=== PATIENT | female | born 1985 | race Caucasian/White ===

== ENCOUNTER → 2022-03-30 | Outpatient (CLI) | payer BC ==
[2022-03-30 10:28] LABS: HCT 39.1 % (34.0-46.0); HGB 13.4 gm/dL (11.4-16.0); MCH 33.1 pg (25.0-35.0); MCHC 34.3 g/dL (31.0-37.0); MCV 96.6 fL (80.0-100.0); Platelet Count 258 k/uL (150-450); RBC 4.05 m/uL (3.80-5.40); RDW 12.1 % (11.5-15.5)
[2022-03-30 10:39] LABS: African American GFR (CKD) >90 (>60 ml/min/1.73 sqM); Glucose 92 mg/dL (74-99); Non-African American GFR(CKD) >90 (>60 ml/min/1.73 sqM)
[2022-03-30 23:05] LABS: Hepatitis B Surface Antigen Nonreactive (Nonreactive); Hepatitis C IgG Antibody Nonreactive (Nonreactive)
[2022-04-01 02:36] LABS: Toxoplasma Antibody (IgG) <3.0 IU/mL (<7.2); Toxoplasma Antibody (IgM) 4.3 AU/mL (<8.0)
== END | disposition home or self-care (01) ==
LOC: LABWHC1 09:16
PROVIDERS: ATTEND Obstetrics & Gynecology
DX: Z34.01 Encounter for supervision of normal first pregnancy, first trimester (principal); Z3A.00 Weeks of gestation of pregnancy not specified
CPT/HCPCS: 36415; 81291; 82565; 82947; 85027; 85613; 85730; 86147; 86762; 86777; 86778; 86780; 86803; 86850; 86900; 86901; 87340; 87390

== ENCOUNTER → 2022-06-29 | Outpatient (CLI) | payer BC ==
[2022-06-29 17:06] LABS: HCT 33.8 % (37.2-46.3); HGB 11.1 g/dL (12.0-15.0); MCH 33.3 pg (27.0-32.0); MCHC 32.8 g/dL (32.0-37.0); MCV 101.5 fL (80.0-97.0); Mean Platelet Volume 8.9 fL (9.5-12.2); NRBC Per 100 WBC 0 /100 WBCS (0.0-0.0); Platelet Count 279 X 10*3/uL (140-440); RBC 3.33 X 10*6/uL (4.10-5.20); RDW 13.4 % (11.5-14.5); WBC 12.45 X 10*3/uL (4.50-10.00)
== END | disposition home or self-care (01) ==
LOC: LABWHC1 10:29 → EDSTATUS 11:47
PROVIDERS: ATTEND Obstetrics & Gynecology
DX: Z34.02 Encounter for supervision of normal first pregnancy, second trimester (principal); Z3A.00 Weeks of gestation of pregnancy not specified
CPT/HCPCS: 36415; 82950; 85027

== ENCOUNTER 2022-09-17 17:21 | Inpatient (IN) | payer BC ==
--- NOTE | 2022-09-17 17:57 | P.HPOB ---
History of Present Illness H&P Date: 09/17/22 Chief Complaint: Oligohydramnios, abnormal placentation This patient is a pleasant 37-year-old 1 para 0 female estimated date of confinement 10/14/2022 estimated gestational age 36 and one sevenths weeks who presents from my office for admission for monitoring, steroid administration, and delivery. Patient's has been complicated by known bilobed placenta with umbilical cord insertion between the lobes. Patient was referred to maternal- medicine and this was discovered at her 20 week ultrasound. Patient at approximately 33 weeks was noted to have a low normal amniotic fluid index of 6.7. She continued to have testing and weekly MITCH's. I did discuss the clinical situation with her maternal- medicine physician, Dr. Cardozo, and she recommended to proceed with delivery if the MITCH fell below 5 after 36 weeks. Patient's amniotic fluid index today was 3.9 and persistent breech presentation. Patient's otherwise has been uncomplicated. She did decline self-retaining DNA testing or any genetic testing. Review of Systems Genitourinary: Reports Menstruation: Reports amenorrhea Past Medical History Past Medical History: GERD/Reflux History of Any Multi-Drug Resistant Organisms: None Reported Past Surgical History: Tonsillectomy Additional Past Surgical History / Comment(s): Hymenectomy Past Anesthesia/Blood Transfusion Reactions: No Reported Reaction Past Psychological History: No Psychological Hx Reported Smoking Status: Never smoker Past Alcohol Use History: None Reported Past Drug Use History: None Reported - Past Family History Mother Family Medical History: No Reported History Medications and Allergies Home Medications Medication Instructions Recorded Confirmed Type Famotidine [Pepcid] 20 mg PO DAILY 09/17/22 09/17/22 History Folic Acid 1 mg PO DAILY 09/17/22 09/17/22 History Loratadine [Claritin] 10 mg PO DAILY 09/17/22 09/17/22 History Vit No.179/Iron/Folic 1 each PO DAILY 09/17/22 09/17/22 History [ Tablet] Zinc Gluconate [Zinc] 50 mg PO DAILY 09/17/22 09/17/22 History Allergies Allergy/AdvReac Type Severity Reaction Status Date / Time erythromycin base Allergy Rash/Hives Verified 09/17/22 17:26 Sulfa (Sulfonamide Allergy Rash/Hives Verified 09/17/22 17:26 Antibiotics) codeine AdvReac Hallucinati Verified 09/17/22 17:26 ons Exam Vital Signs Temp Pulse Resp BP Pulse Ox 09/17/22 17:37 97.4 F L 87 16 128/79 98 Intake and Output 09/17/22 09/17/22 09/17/22 06:59 14:59 22:59 Other: Weight 104.326 kg - OBG Physical Exam Abdomen: bowel sounds normal, no diffuse tenderness, no bruit present, no guarding noted, no hepatomegaly, no splenomegaly, no mass Vulva: both: normal Vagina: normal moisture, no discharge Cervix: no lesion, no discharge Uterus: enlarged Results labs show she is oh positive, rubella immune, RPR nonreactive, hepatitis B and C negative, HIV is nonreactive, Glucola was 89, group B strep was negative, 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 Assessment and Plan Assessment: This is a pleasant 37-year-old 1 para 0 female 36 and one sevenths weeks gestation who is admitted to labor and delivery secondary to severe oligohydramnios, bilobed placenta with cord insertion between the lobes, and breech presentation. Per maternal medicine recommendations, plan is admission for steroid administration and continuous monitoring. Plan delivery by section secondary to breech in 24 hours, unless heart tones are concerning and then would do sooner. I discussed the treatment plan with the patient and her and they agree. I did discuss the surgery and risks and risks of infection, bleeding, possible injury bowel, bladder, vessels, and/or other organs. All the patient's questions are answered and a written consent is obtained. (1) 36 to 37 weeks gestation of Current Visit: Yes Status: Acute Code(s): [id number] - SNOMED Code(s): 146923772 (2) Oligohydramnios Current Visit: Yes Status: Acute Code(s): O41.00X0 - OLIGOHYDRAMNIOS, UNSP TRIMESTER, NOT APPLICABLE OR UNSP SNOMED Code(s): 63972196 (3) Bilobed placenta Current Visit: Yes Status: Acute Code(s): O43.199 - OTHER MALFORMATION OF PLACENTA, UNSPECIFIED TRIMESTER SNOMED Code(s): 2291425290 (4) Elderly primigravida Current Visit: Yes Status: Acute Code(s): O09.519 - SUPERVISION OF ELDERLY PRIMIGRAVIDA, UNSPECIFIED TRIMESTER SNOMED Code(s): 20292132 (5) Breech presentation Current Visit: Yes Status: Acute Code(s): O32.1XX0 - MATERNAL CARE FOR BREECH PRESENTATION, UNSP SNOMED Code(s): 7663870
[2022-09-17] MEDS ORDERED: BETAMET ACET-BETAMETH SOD PHOS 6 MG/ML MDV IM SCH (19:00)
[2022-09-17] MEDS ORDERED: LACTATED RINGERS 1,000 ML IV SCH (23:39)
[2022-09-18] MEDS ORDERED: CITRIC ACID-SODIUM CITRATE 15 ML CUP PO ONE (05:07)
[2022-09-18] MEDS ORDERED: miSOPROStoL 200 MCG TAB PO PRN (05:09)
[2022-09-18] MEDS ORDERED: TRANEXAMIC ACID IN NACL,ISO-OS 1,000 MG in EMPTY BAG 1 BAG IV PRN (05:09)
[2022-09-18] MEDS ORDERED: OXYTOCIN 10 UNIT/ML 1 ML VIAL IM PRN (05:09)
[2022-09-18] MEDS ORDERED: CARBOPROST TROMETHAMINE 250 MCG/ML 1 ML AMP IM PRN (05:09)
[2022-09-18] MEDS ORDERED: METHYLERGONOVINE 0.2 MG/ML 1 ML AMP IM PRN (05:09)
[2022-09-18] MEDS ORDERED: ceFAZolin 3 GM in SODIUM CHLORIDE 0.9% 100 ML IVPB ONE (05:10)
[2022-09-18 05:32] LABS: Basophils % (A) 0 %; Eosinophils # (A) 0.1 k/uL (0-0.7); Eosinophils % (A) 1 %; HGB 12.1 gm/dL (11.4-16.0); Lymphocytes # (A) 1.4 k/uL (1.0-4.8); Lymphocytes % (A) 11 %; MCH 34.4 pg (25.0-35.0); MCHC 35.5 g/dL (31.0-37.0); MCV 96.9 fL (80.0-100.0); Mean Platelet Volume 7.5; Monocytes # (A) 0.2 k/uL (0-1.0); Monocytes % (A) 2 %; Neutrophils # (A) 10.8 k/uL (1.3-7.7); Neutrophils % (A) 86 %; Platelet Count 248 k/uL (150-450); RDW 13.1 % (11.5-15.5); WBC 12.6 k/uL (3.8-10.6)
[2022-09-18] MEDS ORDERED: ONDANSETRON 4 MG/2 ML VIAL ONE (05:40)
[2022-09-18] MEDS ORDERED: KETOROLAC 15 MG/ML 1 ML VIAL ONE (05:40)
[2022-09-18] MEDS ORDERED: MORPHINE SULFATE (PF) 0.3 MG/0.3 ML SYR ONE (05:40)
[2022-09-18] MEDS ORDERED: OXYTOCIN 30 UNITS/500 ML NS BAG IV ONE (05:40)
[2022-09-18] MEDS ORDERED: PHENYLEPHRINE-0.9% NACL SYG 1,000 MCG/10 ML SYRINGE ONE (05:40)
[2022-09-18] MEDS ORDERED: SIMETHICONE 80 MG CHEWABLE PO PRN (06:31)
[2022-09-18] MEDS ORDERED: LANOLIN CREAM 5 GM TUBE TOPICAL PRN (06:31)
[2022-09-18] MEDS ORDERED: ONDANSETRON 4 MG/2 ML VIAL IVP PRN (06:31)
[2022-09-18] MEDS ORDERED: diphenhydrAMINE 25 MG CAP PO PRN (06:31)
[2022-09-18] MEDS ORDERED: diphenhydrAMINE 50 MG/ML 1 ML VIAL IVP PRN (06:31)
[2022-09-18] MEDS ORDERED: METOCLOPRAMIDE 5 MG/ML 2 ML VIAL IVP PRN (06:31)
[2022-09-18] MEDS ORDERED: NALOXONE 0.4 MG/ML 1 ML VIAL IV PRN (06:31)
[2022-09-18] MEDS ORDERED: ZOLPIDEM 5 MG TAB PO PRN (06:31)
--- NOTE | 2022-09-18 06:40 | P.OP ---
Date of Procedure: 09/18/22 Preoperative Diagnosis: #1: 36-2/7 week intrauterine . #2: Known breech presentation. #3: Nonreassuring heart tones. #4: Bilobed placenta with membrane is insertion 5: Oligohydramnios Postoperative Diagnosis: Same Procedure(s) Performed: Primary low transverse section Anesthesia: spinal Surgeon: Hermann Arguello Syruper #1: Jeri Lehman Estimated Blood Loss (ml): 600 Pathology: other (Placenta) Condition: stable Disposition: floor Indications for Procedure: Please see dictated H&P for intimate details of this patient's admission. In brief summary this is a pleasant 37-year-old 1 para 0 female 36-2/7 weeks gestation who is admitted last evening for continuous monitoring, steroid administration, and plans for delivery in 24 hours due to breech presentation and oligohydramnios. Patient was on the monitor in the evening unfortunately had multiple decelerations. Most of these resolved with position changes however earlier this morning she had a prolonged deceleration evaluated by Dr. Lehman and the plan was to proceed immediately with delivery by section. I've early discussed the surgery with the patient and her . The understand the surgery and risks and risks of infection, bleeding, possible injury bowel, bladder, vessels, and/or other organs. All the patient's questions are answered and a written consent was obtained. Operative Findings: This is a vigorous viable female infant Apgars 8 and 9 delivery time was 0557 hours. Infant was in the sacrum anterior presentation breech. and grossly appeared normal. Placenta showed a bilobed placenta with membranes insertion Description of Procedure: This patient has a Melvin catheter placed to straight drain. She subsequently taken to the operating room where she sat up and spinal anesthetic is administered without incident. With an adequate level of anesthesia she has abdominal prep and drape. Scalpels and taken Pfannenstiel skin incision is then made. A second scalpel is taken down the fascia and the fascia scored with a knife. Fascial incision extended bilaterally using the Kline scissors. Fascia is then dissected off the rectus muscles sharply. Rectus muscles are and the peritoneum was identified and entered sharply. Peritoneal extended superior and inferior without difficulty. Bladder blade is then placed. Bladder peritoneum was taken sharply off the lower uterine segment. Scalpels and taken low transverse uterine incision is then made. Using a hemostat I enter the uterine cavity bluntly. There is a scant amount of clear fluid. is found to be sacrum anterior, shahana breech presentation. With fundal pressure the breech is easily delivered and then using the rest of the breech maneuvers the infant is body is delivered atraumatically. This done the umbilical cord is doubly clamped and cut infant is handed off to the english language learner tutor who was present. The placenta is then manually extracted intact. It is bilobed with a membranous cord insertion between the lobes. This done the uterus is externalized. Uterine incision demarcated with Pabon clamps. Uterine incision then closed using 0 Vicryl running locked fashion 2 layers. Excellent hemostasis is noted. Bladder peritoneum was then reapproximated using a 3-0 Vicryl. Excess fluid is removed from the abdomen and pelvis. Uterus, tubes, ovaries appear normal for term gestation. Uterus placed back into the abdomen. The parietal peritoneum was then identified and closed using 0 Vicryl running fashion. Rectus muscles reapproximated in 0 Vicryl interrupted fashion. Fascial incision closed 0 PDS in a running fashion. Fascial incision is intact and hemostatic. Subcutaneous tissues and closed using a 3-0 Vicryl. Skin is and closed using willian. All counts are correct 3. There are no complications. and mother are stable in delivery room and subsequently taken special care nursery due to prematurity.
[2022-09-18] MEDS ORDERED: OXYTOCIN 30 UNITS/500 ML NS 30 UNIT in SALINE 1 500ML.BAG IV SCH (06:45)
[2022-09-18] MEDS: ACETAMINOPHEN TAB 500 MG TAB PO SCH ×2 (07:58→15:31)
[2022-09-18] MEDS: SENNOSIDES-DOCUSATE SODIUM 1 EACH TAB PO SCH ×3 (08:04→21:29)
[2022-09-18] MEDS: LACTATED RINGERS 1,000 ML IV SCH ×3 (10:40→22:35)
[2022-09-18] MEDS: KETOROLAC 15 MG/ML 1 ML VIAL IVP SCH ×2 (12:27→21:31)
[2022-09-18] MEDS: IBUPROFEN 600 MG TAB PO SCH ×2 (12:46→21:29)
[2022-09-19] MEDS: ACETAMINOPHEN TAB 500 MG TAB PO SCH ×4 (00:24→23:45)
[2022-09-19] MEDS: IBUPROFEN 600 MG TAB PO SCH ×4 (03:56→22:26)
[2022-09-19] MEDS: KETOROLAC 15 MG/ML 1 ML VIAL IVP SCH (03:56)
--- NOTE | 2022-09-19 04:50 | P.PNOBGPC ---
Subjective - Subjective Patient reports: Reports appetite normal, Reports voiding normally, Reports pain well controlled, Reports ambulating normally : doing well Objective - Vital Signs Latest vital signs: Vital Signs Temp Pulse Pulse Resp BP Pulse Ox 09/19/22 04:00 98 F 78 16 106/70 95 09/19/22 00:00 97.9 F 70 18 133/86 98 09/18/22 20:00 98.2 F 74 18 120/81 99 09/18/22 16:00 97.7 F 85 18 142/88 98 09/18/22 12:25 98.1 F 84 16 122/81 98 09/18/22 08:30 96 16 116/69 97 09/18/22 08:00 90 16 111/66 98 09/18/22 07:30 99 16 109/65 97 09/18/22 07:15 93 16 107/64 97 09/18/22 07:00 109 H 16 110/64 96 09/18/22 06:45 104 H 17 116/61 99 09/18/22 06:31 96 09/18/22 06:30 96.6 F L 103 H 17 120/54 99 Intake and Output 09/18/22 09/18/22 09/19/22 14:59 22:59 06:59 Intake Total 500 500 Output Total 587 800 Balance -587 -300 500 Intake: Oral 500 500 Output: Urine 300 800 Uretheral (Melvin) 300 Output, Quantitative 287 Blood Loss Other: # Voids 1 1 - Exam Lungs: bilateral: normal Chest: Normal S1, Normal S2 Extremities: Present: normal Abdomen: Present: normal appearance, soft. Absent: distention, tenderness Incision: Present: normal, dry, intact Uterus: Present: normal, firm - Labs Labs: Abnormal Lab Results - Last 24 Hours (Table) 09/18/22 Range/Units 05:25 WBC 12.6 H (3.8-10.6) k/uL RBC 3.50 L (3.80-5.40) m/uL Neutrophils # 10.8 H (1.3-7.7) k/uL Assessment and Plan Assessment: Postoperative day #2. Patient is resting without new complaints. Vital signs are stable she's afebrile. Uterus is firm nontender and her incision is intact and dry. Plan today is to check a CBC, allow the patient shower, encourage ambulation, and continue routine postoperative care. (1) 36 to 37 weeks gestation of Current Visit: Yes Status: Acute Code(s): [id number] - SNOMED Code(s): 579278796 (2) Oligohydramnios Current Visit: Yes Status: Acute Code(s): O41.00X0 - OLIGOHYDRAMNIOS, UNSP TRIMESTER, NOT APPLICABLE OR UNSP SNOMED Code(s): 96499708 (3) Bilobed placenta Current Visit: Yes Status: Acute Code(s): O43.199 - OTHER MALFORMATION OF PLACENTA, UNSPECIFIED TRIMESTER SNOMED Code(s): 5369041770 (4) Elderly primigravida Current Visit: Yes Status: Acute Code(s): O09.519 - SUPERVISION OF ELDERLY PRIMIGRAVIDA, UNSPECIFIED TRIMESTER SNOMED Code(s): 74028375 (5) Breech presentation Current Visit: Yes Status: Acute Code(s): O32.1XX0 - MATERNAL CARE FOR BREECH PRESENTATION, UNSP SNOMED Code(s): 4694568
--- NOTE | 2022-09-19 06:09 | P.PN ---
Progress Note - Text Date: 09/19/2022 Time: 05:32 The patient is status post section Vital signs stable VAS:[ 0-10] Patient has no complaints of pain. The patient incurred some minimal itching yesterday, this itching is now subsiding. Pain meds to be managed by service.
[2022-09-19] MEDS: LACTATED RINGERS 1,000 ML IV SCH (07:24)
[2022-09-19 07:28] LABS: Basophils # (A) 0.1 k/uL (0-0.2); Basophils % (A) 0 %; Eosinophils # (A) 0.3 k/uL (0-0.7); Eosinophils % (A) 2 %; HGB 11.4 gm/dL (11.4-16.0); Lymphocytes # (A) 2.8 k/uL (1.0-4.8); Lymphocytes % (A) 17 %; MCH 33.6 pg (25.0-35.0); MCHC 33.4 g/dL (31.0-37.0); MCV 100.5 fL (80.0-100.0); Mean Platelet Volume 7.1; Monocytes # (A) 0.8 k/uL (0-1.0); Monocytes % (A) 5 %; Neutrophils # (A) 12.4 k/uL (1.3-7.7); Neutrophils % (A) 75 %; Platelet Count 250 k/uL (150-450); RBC 3.38 m/uL (3.80-5.40); RDW 12.9 % (11.5-15.5); WBC 16.6 k/uL (3.8-10.6)
[2022-09-19] MEDS: SENNOSIDES-DOCUSATE SODIUM 1 EACH TAB PO SCH ×2 (07:49→19:42)
[2022-09-20 01:09] VITALS: RESP 16
[2022-09-20] MEDS: IBUPROFEN 600 MG TAB PO SCH ×2 (04:37→10:11)
--- NOTE | 2022-09-20 06:43 | P.PNOBGPC ---
Subjective - Subjective Patient reports: Reports appetite normal, Reports voiding normally, Reports pain well controlled, Reports ambulating normally : doing well Objective - Vital Signs Latest vital signs: Vital Signs Temp Pulse Resp BP Pulse Ox 09/20/22 00:00 98.4 F 78 16 115/75 98 09/19/22 20:00 98.4 F 69 19 126/68 98 09/19/22 08:00 98.1 F 85 16 118/76 97 Intake and Output 09/19/22 09/19/22 09/20/22 14:59 22:59 06:59 Other: Voiding Method Indwelling Catheter Indwelling Catheter - Exam Lungs: bilateral: normal Chest: Normal S1, Normal S2 Extremities: Present: normal Abdomen: Present: normal appearance, soft. Absent: distention, tenderness Incision: Present: normal, dry, intact Uterus: Present: normal, firm - Labs Labs: Abnormal Lab Results - Last 24 Hours (Table) 09/19/22 Range/Units 07:06 WBC 16.6 H (3.8-10.6) k/uL RBC 3.38 L (3.80-5.40) m/uL MCV 100.5 H (80.0-100.0) fL Neutrophils # 12.4 H (1.3-7.7) k/uL Assessment and Plan Assessment: Post operative day #2. Patient is resting without complaints and wishes to go home. Vital signs are stable she's afebrile. Uterus is firm nontender and her incision is intact and dry. CBC yesterday was normal. Patient is ambulating and urinating without difficulty. I impression this is a normal post operative course. Plan is to continue routine postoperative care discharge home later today. (1) 36 to 37 weeks gestation of Current Visit: Yes Status: Acute Code(s): [id number] - SNOMED Code(s): 484764002 (2) Oligohydramnios Current Visit: Yes Status: Acute Code(s): O41.00X0 - OLIGOHYDRAMNIOS, UNSP TRIMESTER, NOT APPLICABLE OR UNSP SNOMED Code(s): 95966363 (3) Bilobed placenta Current Visit: Yes Status: Acute Code(s): O43.199 - OTHER MALFORMATION OF PLACENTA, UNSPECIFIED TRIMESTER SNOMED Code(s): 0887089724 (4) Elderly primigravida Current Visit: Yes Status: Acute Code(s): O09.519 - SUPERVISION OF ELDERLY PRIMIGRAVIDA, UNSPECIFIED TRIMESTER SNOMED Code(s): 45463540 (5) Breech presentation Current Visit: Yes Status: Acute Code(s): O32.1XX0 - MATERNAL CARE FOR BREECH PRESENTATION, UNSP SNOMED Code(s): 3099689
--- NOTE | 2022-09-20 06:47 | P.DS ---
Providers Date of admission: 09/17/22 17:21 Expected date of discharge: 09/20/22 Attending physician: Hermann Arguello Primary care physician: Stated None - Discharge Diagnosis(es) (1) 36 to 37 weeks gestation of Current Visit: Yes Status: Acute (2) Oligohydramnios Current Visit: Yes Status: Acute (3) Bilobed placenta Current Visit: Yes Status: Acute (4) Elderly primigravida Current Visit: Yes Status: Acute (5) Breech presentation Current Visit: Yes Status: Acute Hospital Course: Please see dictated H&P for intimate details of this patient's admission. Brief summary this is a pleasant 37-year-old 1 para 0 female 36-2/7 weeks gestation admitted for Celestone administration and delivery secondary to oligohydramnios and abnormal placentation. Patient is admitted subsequent has nonreassuring heart tones goes on to have a primary section for this and breech presentation. Please see dictated operative note. Postoperatively the patient the baby do well and on postoperative day 2 felt to be stable for discharge home follow up with me in 1 week. Procedures: Primary low transverse section Patient Condition at Discharge: Good Plan - Discharge Summary New Discharge Prescriptions: New Ibuprofen [Motrin] 600 mg PO Q6H #40 tab No Action Famotidine [Pepcid] 20 mg PO DAILY Zinc Gluconate [Zinc] 50 mg PO DAILY Folic Acid 1 mg PO DAILY Vit No.179/Iron/Folic [ Tablet] 1 each PO DAILY Loratadine [Claritin] 10 mg PO DAILY Discharge Medication List Famotidine [Pepcid] 20 mg PO DAILY 09/17/22 [History] Folic Acid 1 mg PO DAILY 09/17/22 [History] Loratadine [Claritin] 10 mg PO DAILY 09/17/22 [History] Vit No.179/Iron/Folic [ Tablet] 1 each PO DAILY 09/17/22 [History] Zinc Gluconate [Zinc] 50 mg PO DAILY 09/17/22 [History] Ibuprofen [Motrin] 600 mg PO Q6H #40 tab 09/20/22 [Rx] Follow up Appointment(s)/Referral(s): Hermann Arguello MD [STAFF PHYSICIAN] - 10/29/22 9:45 am (Post Op appointment 09-25-2022 at 1:30) Patient Instructions/Handouts: (DC) Activity/Diet/Wound Care/Special Instructions: No heavy lifting or strenuous activity for 6 weeks. Please call if any fever, chills, excessive vaginal bleeding, and/or abdominal pain. Discharge Disposition: HOME SELF-CARE
[2022-09-20] MEDS: ACETAMINOPHEN TAB 500 MG TAB PO SCH ×2 (06:50→12:43)
[2022-09-20 08:40] VITALS: BP 113/68; PULSE 85; TEMP 98.5
== END 2022-09-20 13:30 | disposition home or self-care (01) | DRG 788 ==
LOC: 4FBP 17:21
PROVIDERS: ADMIT Obstetrics & Gynecology; ATTEND Obstetrics & Gynecology
PROC: 10D00Z1 Extraction of Products of Conception, Low, Open Approach (ICD-10-PCS; principal; 2022-09-18 05:25)
DX: O41.03X0 Oligohydramnios, third trimester, not applicable or unspecified (principal); Z37.0 Single live birth; O32.1XX0 Maternal care for breech presentation, not applicable or unspecified; O43.193 Other malformation of placenta, third trimester; O76 Abnormality in fetal heart rate and rhythm complicating labor and delivery
CPT/HCPCS: 85025; 86850; 86900; 86901; 88307

== ENCOUNTER 2024-03-23 06:04 | Inpatient (IN) | payer BC ==
[2024-03-23] MEDS ORDERED: TRANEXAMIC 1,000 MG/100ML-NACL 1,000 MG in EMPTY BAG 1 BAG IV PRN (06:17)
[2024-03-23] MEDS ORDERED: miSOPROStoL 200 MCG TAB RECTAL PRN (06:17)
[2024-03-23] MEDS ORDERED: miSOPROStoL 200 MCG TAB PO PRN (06:17)
[2024-03-23] MEDS ORDERED: METHYLERGONOVINE 0.2 MG/ML 1 ML AMP IM PRN (06:17)
[2024-03-23] MEDS ORDERED: TERBUTALINE 1 MG/ML VIAL SQ PRN (06:17)
[2024-03-23] MEDS ORDERED: CARBOPROST TROMETHAMINE 250 MCG/ML 1 ML AMP IM PRN (06:17)
[2024-03-23] MEDS ORDERED: OXYTOCIN 10 UNIT/ML 1 ML VIAL IM PRN (06:17)
[2024-03-23] MEDS ORDERED: OXYTOCIN 30 UNITS/500 ML NS 30 UNIT in SALINE 1 500ML.BAG IV SCH (06:30)
[2024-03-23 08:02] LABS: Basophils % (A) 0 %; Eosinophils # (A) 0.1 k/uL (0-0.7); Eosinophils % (A) 1 %; HCT 39.9 % (34.0-46.0); HGB 13.3 gm/dL (11.4-16.0); Lymphocytes # (A) 2.7 k/uL (1.0-4.8); Lymphocytes % (A) 24 %; MCH 32.9 pg (25.0-35.0); MCHC 33.4 g/dL (31.0-37.0); MCV 98.5 fL (80.0-100.0); Mean Platelet Volume 9.1; Monocytes # (A) 0.4 k/uL (0-1.0); Monocytes % (A) 4 %; Neutrophils # (A) 7.8 k/uL (1.3-7.7); Neutrophils % (A) 70 %; Platelet Count 269 k/uL (150-450); RBC 4.05 m/uL (3.80-5.40); RDW 13.7 % (11.5-15.5); WBC 11.2 k/uL (3.8-10.6)
[2024-03-23] MEDS ORDERED: SODIUM CHLORIDE 0.9% 250 ML BAG ONE (09:12)
[2024-03-23] MEDS ORDERED: fentaNYL (PF) 50 MCG/ML 5 ML AMP ONE (09:12)
[2024-03-23] MEDS ORDERED: ROPIVACAINE 5 MG/ML 30 ML VIAL ONE (09:12)
[2024-03-23] MEDS: LACTATED RINGERS 1,000 ML IV SCH (09:33)
[2024-03-23] MEDS ORDERED: ROPIVACAINE 225 MG, fentaNYL (PF). 450 MCG in SODIUM CHLORIDE 0.9% 171 ML EPIDURAL ONE (12:39)
[2024-03-23] MEDS: AMPICILLIN 2,000 MG in SODIUM CHLORIDE 0.9% 100 ML IVPB STA (18:33)
[2024-03-23] MEDS ORDERED: ZOLPIDEM 5 MG TAB PO PRN (22:28)
[2024-03-23] MEDS ORDERED: diphenhydrAMINE 25 MG CAP PO PRN (22:28)
[2024-03-23] MEDS ORDERED: SIMETHICONE 80 MG CHEWABLE PO PRN (22:28)
[2024-03-23] MEDS ORDERED: HYDROCORTISONE 2.5% RECTAL CREAM 30 GM TUBE RECTAL PRN (22:28)
[2024-03-23] MEDS ORDERED: diphenhydrAMINE 50 MG CAP PO PRN (22:28)
[2024-03-23] MEDS ORDERED: LANOLIN CREAM 1 GM TUBE TOPICAL PRN (22:28)
[2024-03-23] MEDS: LIDOCAINE 0.5% (PF) 5 MG/ML (50 ML SDV) SQ PRN (22:56)
--- NOTE | 2024-03-23 23:01 | P.PROBDLV ---
Vaginal Delivery Note - . Vaginal Delivery Note: Viable male delivered at 2147, weight of 7 pounds 11 ounces. 39 yo that presented to labor and delivery at 39 3/7 weeks with c/o SROM, and regular painful contractions. She was noted to be 4 cm on admission. She has a prior history of a section secondary to breech and oligohydramnios at 36 weeks. Patient requested trial of labor after . Patient was admitted and made slow progress through labor, she did eventually become uncomfortable and requested epidural. Epidural was placed without difficulty by the anesthesia department. Patient progressed to complete and can pushing after augmentation labor with Pitocin. With excellent maternal effort patient had a vaginal after , with a loose nuchal cord noted at the time of delivery reduced on delivery of the head. Delivery time of 21:47, weight of 7 pounds 11 ounces. Placenta was delivered spontaneously intact with a three-vessel cord. Uterus was noted to be firm and below the umbilicus. Upon inspection of the patient's vaginal vault second-degree midline laceration was appreciated. This was injected with lidocaine and repaired in the usual fashion with 3-0 Rapide. After closure hemostasis was appreciated. All counts were noted be correct x 2 at the end of delivery. Patient and tolerated delivery well and are resting comfortably.
[2024-03-23] MEDS: AMPICILLIN 1,000 MG in SODIUM CHLORIDE 0.9% 50 ML IVPB SCH (23:03)
[2024-03-23] MEDS: OXYTOCIN 30 UNITS/500 ML NS 30 UNIT in SALINE 1 500ML.BAG IV SCH (23:06)
[2024-03-23] MEDS: ACETAMINOPHEN TAB 500 MG TAB PO SCH (23:35)
[2024-03-23] MEDS: BENZOCAINE/MENTHOL SPRAY 1 GM/SPRAY AEROSOL TOPICAL PRN (23:45)
[2024-03-24] MEDS: IBUPROFEN 800 MG TAB PO SCH (02:32)
[2024-03-24 06:20] LABS: Basophils % (A) 0 %; Eosinophils # (A) 0.1 k/uL (0-0.7); Eosinophils % (A) 1 %; HCT 32.6 % (34.0-46.0); HGB 11.4 gm/dL (11.4-16.0); Lymphocytes # (A) 2.3 k/uL (1.0-4.8); Lymphocytes % (A) 18 %; MCH 33.6 pg (25.0-35.0); MCHC 34.8 g/dL (31.0-37.0); MCV 96.5 fL (80.0-100.0); Mean Platelet Volume 7.7; Monocytes # (A) 0.5 k/uL (0-1.0); Monocytes % (A) 4 %; Neutrophils # (A) 9.8 k/uL (1.3-7.7); Neutrophils % (A) 77 %; Platelet Count 224 k/uL (150-450); RBC 3.38 m/uL (3.80-5.40); RDW 13.6 % (11.5-15.5); WBC 12.7 k/uL (3.8-10.6)
[2024-03-24] MEDS: SENNOSIDES-DOCUSATE SODIUM 1 EACH TAB PO SCH (10:09)
--- NOTE | 2024-03-24 16:23 | P.HPOB ---
History of Present Illness H&P Date: 03/23/24 Chief Complaint: IUP @ 39 3/7 weeks, TOLAC 39 yo that presents to labor delivery early this am with compliants of rupture of membranes, and contractions. She states her water broke late last night, but she has noted contractions since friday. she has a history of a section for breech and oligohydramnios. she is desirous of TOLAC. US complete at 36 weeks, 03/02 revealing a EFW 7-3 87%ile, nml MITCH she does noted good FM. she has a councilperson for labor support at the bedside Review of Systems Constitutional: Reports fatigue, Denies chills, Denies fever Ears, nose, mouth and throat: Denies headache Cardiovascular: Reports leg edema Respiratory: Denies dyspnea Gastrointestinal: Denies nausea, Denies vomiting Genitourinary: Reports Past Medical History Past Medical History: GERD/Reflux History of Any Multi-Drug Resistant Organisms: None Reported Past Surgical History: Section, Tonsillectomy Additional Past Surgical History / Comment(s): Hymenectomy Past Anesthesia/Blood Transfusion Reactions: No Reported Reaction Past Psychological History: No Psychological Hx Reported Smoking Status: Never smoker Past Alcohol Use History: None Reported Past Drug Use History: None Reported - Past Family History Mother Family Medical History: No Reported History Medications and Allergies Home Medications Medication Instructions Recorded Confirmed Type Famotidine [Pepcid] 20 mg PO DAILY 09/17/22 09/17/22 History Folic Acid 1 mg PO DAILY 09/17/22 03/23/24 History Vit No.179/Iron/Folic 1 each PO DAILY 09/17/22 03/23/24 History [ Tablet] Ibuprofen [Motrin] 600 mg PO Q6H #40 tab 09/20/22 Rx Aspirin 81 mg PO DAILY 03/23/24 03/23/24 History Fexofenadine HCl [Shira Allergy] 60 mg PO DAILY 03/23/24 03/23/24 History Fluticasone Nasal [place] [Flonase 1 spray NASAL DAILY 03/23/24 03/23/24 History Nasal [place]] Omeprazole [PriLOSEC] 10 mg PO DAILY 03/23/24 03/23/24 History Allergies Allergy/AdvReac Type Severity Reaction Status Date / Time erythromycin base Allergy Rash/Hives Verified 03/23/24 06:07 Sulfa (Sulfonamide Allergy Rash/Hives Verified 03/23/24 06:07 Antibiotics) codeine AdvReac Hallucinati Verified 03/23/24 06:07 ons Exam Osteopathic Statement: *. No significant issues noted on an osteopathic structural exam other than those noted in the History and Physical/Consult. Vital Signs Temp Pulse Resp BP 03/23/24 06:19 96.8 F L 96 16 154/97 Intake and Output 03/22/24 03/23/24 03/23/24 22:59 06:59 14:59 Other: Weight 106.594 kg targeted physical exam is done on this date, in general this is a well nourished well developed female in active labor, breathing is non labored, abdomen is gravid, on cervical exam she is 6/100/-1 FHTs are noted to be cat 1 and she is contracitng every 2-3 minutes amnisure was positive upon admission. Results Result Diagrams: 03/24/24 05:51 Abnormal Lab Results - Last 24 Hours (Table) 03/23/24 Range/Units 07:49 WBC 11.2 H (3.8-10.6) k/uL Neutrophils # 7.8 H (1.3-7.7) k/uL Assessment and Plan (1) Term Current Visit: Yes Status: Acute Code(s): Z34.90 - ENCNTR FOR SUPRVSN OF NORMAL , UNSP, UNSP TRIMESTER SNOMED Code(s): 11167442 (2) SROM (spontaneous rupture of membranes) Current Visit: Yes Status: Acute Code(s): OFU4424 - SNOMED Code(s): 676130655 (3) Active labor Current Visit: Yes Status: Acute Code(s): JRY2819 - SNOMED Code(s): 80788 6002 (4) Desires (vaginal after ) trial Current Visit: Yes Status: Acute Code(s): O34.219 - MATERNAL CARE FOR UNSP TYPE SCAR FROM PREVIOUS DEL SNOMED Code(s): 983634609 Plan: 39 yo that presents to labor and delivery at 39 3/7 weeks in active labor. she is admitted and ROM is confirmed. She is requesting an epidural and anesthesia is notified. Continue current plan, EFM/TOCO clear liquids as tolerated.
--- NOTE | 2024-03-24 16:29 | P.DS ---
Providers Date of admission: 03/23/24 06:16 Expected date of discharge: 03/24/24 Attending physician: Evelyn Lassiter Primary care physician: Stated None - Discharge Diagnosis(es) (1) Term Current Visit: Yes Status: Acute (2) SROM (spontaneous rupture of membranes) Current Visit: Yes Status: Acute (3) Active labor Current Visit: Yes Status: Acute (4) Desires (vaginal after ) trial Current Visit: Yes Status: Acute Hospital Course: this is a 39 yo G2 now P1102 that presented to labor and katja yesterday am with complaints of SROM, and labor. She has been receiving routine care with myself. she has a prior h/o section, for breech and oligohydramnios at 36 weeks. she was very desirous of TOLAC. she was admitted and requested epidural. She progressed through labor stalling at 8 cm. She was counseled on pitocin augmentation of labor and after soem time she agreed. SHe then progressed to complete and began pushing. SHe had a at 21:47, weight 7-11. She did sustain a second degree laceration at the time of delivery. course has been uneventful, and she is very desirous of discharge at 24 hours, requesting d/c home prior if possibel. She is refusing all screening locchia is moderate and appropriate. pain is well controlled BF is going well and she denies concerns Patient Condition at Discharge: Good Plan - Discharge Summary New Discharge Prescriptions: No Action Famotidine [Pepcid] 20 mg PO DAILY Ibuprofen [Motrin] 600 mg PO Q6H #40 tab Fluticasone Nasal Roxie [Flonase Nasal Roxie] 1 spray NASAL DAILY Fexofenadine HCl [Shira Allergy] 60 mg PO DAILY Folic Acid 1 mg PO DAILY Vit No.179/Iron/Folic [ Tablet] 1 each PO DAILY Aspirin 81 mg PO DAILY Omeprazole [PriLOSEC] 10 mg PO DAILY Discharge Medication List Famotidine [Pepcid] 20 mg PO DAILY 09/17/22 [History] Folic Acid 1 mg PO DAILY 09/17/22 [History] Vit No.179/Iron/Folic [ Tablet] 1 each PO DAILY 09/17/22 [History] Ibuprofen [Motrin] 600 mg PO Q6H #40 tab 09/20/22 [Rx] Aspirin 81 mg PO DAILY 03/23/24 [History] Fexofenadine HCl [Shira Allergy] 60 mg PO DAILY 03/23/24 [History] Fluticasone Nasal Roxie [Flonase Nasal Roxie] 1 spray NASAL DAILY 03/23/24 [History] Omeprazole [PriLOSEC] 10 mg PO DAILY 03/23/24 [History] Follow up Appointment(s)/Referral(s): Evelyn Lassiter DO [Doctor of Osteopathic Medicine] - 05/04/24 11:15 am Patient Instructions/Handouts: Vaginal Delivery (GEN), Vaginal Delivery (DC) Activity/Diet/Wound Care/Special Instructions: no tub baths or intercourse until 6 weeks . over the counter ibuprofen 600mg or 3 tablets q 6 hours as needed for pain, routine 6 week PP check has been scheduled Discharge Disposition: HOME SELF-CARE
[2024-03-25 09:10] VITALS: BP 133/88; PULSE 85; RESP 18; TEMP 97.7
--- NOTE | 2024-03-25 10:43 | P.PNOBGVD ---
Subjective - Subjective Principal diagnosis: day #2 Interval history: Patient is doing well on this day #2. She is noting some urinary incontinence. She denies urinary retention symptoms. Her pain is well- controlled. Breast-feeding is going well. She states she is ready for discharge. Patient reports: Reports appetite normal, Reports voiding normally, Reports pain well controlled, Reports ambulating normally [place]: doing well Objective - Latest Vital Signs Latest vital signs: Vital Signs Temp Pulse Resp BP Pulse Ox 03/25/24 08:00 97.7 F 85 18 133/88 99 03/25/24 00:00 98.6 F 98 16 114/79 03/24/24 16:00 97.6 F 97 15 134/81 99 Intake and Output 03/24/24 03/25/24 03/25/24 22:59 06:59 14:59 Other: # Voids 1 1 1 # Bowel Movements 1 - Exam Extremities: Present: normal, edema Abdomen: Present: normal appearance, soft Uterus: Present: normal, firm Assessment and Plan (1) Term Current Visit: Yes Status: Acute Code(s): Z34.90 - ENCNTR FOR SUPRVSN OF NORMAL , UNSP, UNSP TRIMESTER SNOMED Code(s): 97122159 (2) SROM (spontaneous rupture of membranes) Current Visit: Yes Status: Acute Code(s): PSO7835 - SNOMED Code(s): 730292348 (3) Active labor Current Visit: Yes Status: Acute Code(s): [id number] - SNOMED Code(s): 952763354 (4) Desires (vaginal after ) trial Current Visit: Yes Status: Acute Code(s): O34.219 - MATERNAL CARE FOR UNSP TYPE SCAR FROM PREVIOUS DEL SNOMED Code(s): 797226352 (5) (vaginal after ) Current Visit: Yes Status: Acute Code(s): O34.219 - MATERNAL CARE FOR UNSP TYPE SCAR FROM PREVIOUS DEL SNOMED Code(s): 189000766 (6) AMA (advanced maternal age) multigravida 35+ Current Visit: Yes Status: Acute Code(s): O09.529 - SUPERVISION OF ELDERLY MULTIGRAVIDA, UNSPECIFIED TRIMESTER SNOMED Code(s): 994608233 Plan: Patient is doing well . She did stay through the night as she delivered later in the evening and needed to undergo 24-hour testing. She states she is ready for discharge this morning. We did discuss her urinary incontinence and I encouraged her to do timed voids at home. She is given a hat for her toilet so that she can measure voids and ensure she is not retaining urine. instructions are reviewed with patient. No tub baths no intercourse until 6 weeks . She is to call the office to make a routine appointment for 6 weeks. Should she have any concerns prior to this appointment she is urged to call the office.
== END 2024-03-25 12:00 | disposition home or self-care (01) | DRG 807 ==
LOC: FBPOP 06:04 → 4FBP 06:16
PROVIDERS: ADMIT Obstetrics & Gynecology Obstetrics; ATTEND Obstetrics & Gynecology Obstetrics
PROC: 10E0XZZ Delivery of Products of Conception, External Approach (ICD-10-PCS; principal; 2024-03-23)
PROC: 0KQM0ZZ Repair Perineum Muscle, Open Approach (ICD-10-PCS; 2024-03-23)
DX: O34.219 Maternal care for unspecified type scar from previous cesarean delivery (principal); Z37.0 Single live birth; O69.81X0 Labor and delivery complicated by cord around neck, without compression, not applicable or unspecified; O70.1 Second degree perineal laceration during delivery; R32 Unspecified urinary incontinence; Z3A.39 39 weeks gestation of pregnancy; Z79.82 Long term (current) use of aspirin
CPT/HCPCS: 59025; 84112; 85025; 86850; 86900; 86901; 99213